=== PATIENT | female | born 2005 ===

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

== ENCOUNTER 2024-04-09 11:42 | Outpatient (REF) | payer OTHER, SELFPAY ==
[2024-04-09 12:19] LABS: MANUAL DIFF FLAG NO
--- OUTSIDE RECORDS SUMMARY | 2024-04-09 12:58 | XMS_ITS | Encounter Summary ---
Author Organization [facility] Address [address] [place], [place] [id number] Care Team Providers Care Invasive Manager Name Role Phone Nadia Phillip Primary Care Provider [phone] Reason for Visit * CFC AUTH/CERT (Routine) - Authorized Specialty Diagnoses / Procedures Referred By Contac t Referred To Contact Rheumatology Diagnoses 6 month follow up Procedures FOLLOW UP Nadia Phillip PA [address] [place] [address] [place] [address] Phone: tel: fax: Ladan Cid MD [address] [place] [address] Phone: tel: fax: Referral ID Status Reason Start Date Expiration Date V isits Requested Visits Authorized [id number] Authorized 04/09/2024 02/17/2025 1 99 Encounter Details Date Type Department Care Team (Late st Contact Info) Description 04/09/2024 10:40 AM EST Office Visit [facility], Department of Rheumatology, [address] [address] Ladan Cid MD [address] [place] [address] Undifferentiated connective tissue disease (Primary Dx) Social History Tobacco Use Types Packs/Day Years Used Date Smoking Tobacco: Never Smokeless Tobacco: Never Comments No Sex and Gender Information Value Date Recorded Sex Assigned at Not on file Legal Sex Female 11:26 AM EST Gender Identity Not on file Sexual Orientation Not on file documented as of this encounter Last Filed Vital Signs Vital Sign Reading Time Taken Comments Blood Pressure 115/81 04/09/2024 10:43 AM EST Pulse 90 04/09/2024 10:43 AM EST Temperature - - Respiratory Rate - - Oxygen Saturation 99% 04/09/2024 10:43 AM EST Inhaled Oxygen Concentration - - Weight 37.2 kg (82 lb 0.2 oz) 04/09/2024 10:43 A M EST Height 150.2 cm (4' 11.13 ) 04/09/2024 10:43 AM EST Body Mass Index 16.49 04/09/2024 10:43 AM EST documented in this encounter Patient Instructions * Patient Instructions* Ladan Cid MD - 04/09/2024 10:40 AM EST 1-Overall you are doing well on current medications. Suggest continuing them. 2-Reviewed teratogenic nature of MTX and need for labs to monitor. Also reviewed importance of eye exams yearly as you are doing. 3-Suggest labs today. Please call if you don't get a call with results. 4-Return in 6 months or sooner if needed. 5-Continue follow up with nephrology as planned. documented in this encounter Plan of Treatment Upcoming Encounters Date Type Department Care Team (Late st Contact Info) Description 10/08/2024 10:40 AM EDT Office Visit [facility], Department of Rheumatology, [address] [address] Laadn Cid MD [address] [place] [phone] Scheduled Orders Name Type Priority Associated Diagnoses Orde r Schedule CBC auto differential Lab Routine Undifferentiated connective tissue disease Ordered: 04/09/2024 Comprehensive metabolic panel Lab Routine Undifferentiated connective tissue disease Ordered: 04/09/2024 Erythrocyte Sediment Rate (ESR) Lab Routine Undifferentiated connective tissue disease Ordered: 04/09/2024 Vitamin D 25 hydroxy Lab Routine Undifferentiated connective tissue disease Ordered: 04/09/2024 documented as of this encounter Visit Diagnoses Diagnosis Undifferentiated connective tissue disease- Primary Unspecified diffuse connective tissue disease documented in this encounter Care Teams Invasive Manager Relationship Specialty Start Date End Date Nadia Phillip PA [address] [place] [address] [place], [place] [address] PCP - General Physician Power Lineman 03/08/21 documented as of this encounter
--- OUTSIDE RECORDS SUMMARY | 2024-04-09 12:58 | XMS_ITS | Clinical Summary ---
Author Organization [facility] Address [address] [place] [address] Care Team Providers Care Speech Writer Name Role Phone Nadia Phillip Primary Care Provider Source Comments Please note that some or all of the patient's information could have additional privacy protections. State laws allow health care providers to render certain types of treatment to minors without parental consent. Please do not assume that this information can be shared solely by obtaining just the consent of the patient's parent/guardian. Please determine if all or part of the patient's care was rendered without parent/guardian involvement. And, if so, obtain the minor's consent prior to disclosure.[facility] Allergies No known active allergies Medications multivitamins WITH MINERALS tablet Take by mouth daily Active lisinopriL (ZESTRIL) 2.5 MG tablet TAKE 1 TABLET BY MOUTH 1 TIME EACH DAY. 01/26/20 22 Active cyproheptadine (PERIACTIN) 4 mg tablet TAKE 1 TABLET (4 MG TOTAL) BY MOUTH 3 (THREE) TIMES A DAY IF NEEDED FOR ALLERGIES 08/24/19 23 Active methotrexate 2.5 MG tabletIndication s:Undifferentiat ed connective tissue disease,Polyarth ritis, inflammatory TAKE 6 TABLETS BY MOUTH EVERY 7 DAYS. 24 tablet 5 12/16/19 24 Active hydroxychloroqui ne sulfate (PLAQUENIL) 200 mg tabletIndication s:Undifferentiat ed connective tissue disease TAKE 1/2 TAB BY MOUTH ONCE DAILY SATURDAY THROUGH SATURDAY, AND TAKE 1 TAB ON SATURDAYS AND SUNDAYS 54 tablet 2 01/15/20 24 Active folic acid (FOLVITE) 1 MG tabletIndication s:Undifferentiat ed connective tissue disease,Polyarth ritis, inflammatory TAKE 1 TABLET BY MOUTH EVERY DAY 90 tablet 3 03/16/19 25 Active folic acid (FOLVITE) 1 MG tabletIndication s:Undifferentiat ed connective tissue disease,Polyarth ritis, inflammatory TAKE 1 TABLET BY MOUTH EVERY DAY 90 tablet 3 03/29/19 24 025 Discontinued Active Problems No known active problems Encounters Date Type Department Care Team Description 04/09/2024 10:40 AM EST Office Visit [facility], Department of Rheumatology, [address] [address] Ladan Cid MD Undifferentiated connective tissue disease (Primary Dx) 03/14/2024 Refill [facility], Department of Rheumatology, [address] [address] Ladan Cid MD Undifferentiated connective tissue disease; Polyarthritis, inflammatory 01/15/2024 Refill [facility], Department of Rheumatology, [address] [address] Ladan Cid MD Undifferentiated connective tissue disease from Last 3 Months Family History Medical History Relation Name Comments Other Maternal Grandmother told sh e had a muscle problem Thyroid disease Maternal Grandmother Dermatomyositis Neg Hx Diabetes type I Neg Hx Juvenile idiopathic arthritis Neg Hx Lupus Neg Hx Psoriasis Neg Hx Rheum arthritis Neg Hx Scleroderma Neg Hx Sjogren's syndrome Neg Hx Spondyloarthropathy Neg Hx Relation Name Status Comments Maternal Grandmother Social History Tobacco Use Types Packs/Day Years Used Date Smoking Tobacco: Never Smokeless Tobacco: Never Tobacco Cessation:Counseling Given: Not Answered Comments No Sex and Gender Information Value Date Recorded Sex Assigned at Not on file Legal Sex Female 11:26 AM EST Gender Identity Not on file Sexual Orientation Not on file Last Filed Vital Signs Vital Sign Reading Time Taken Comments Blood Pressure 115/81 04/09/2024 10:43 AM EST Pulse 90 04/09/2024 10:43 AM EST Temperature 36.2 ??C (97.2 ??F) 12/07/2021 7:02 PM ED T Respiratory Rate 20 12/07/2021 7:02 PM EDT Oxygen Saturation 99% 04/09/2024 10:43 AM EST Inhaled Oxygen Concentration - - Weight 37.2 kg (82 lb 0.2 oz) 04/09/2024 10:43 A M EST Height 150.2 cm (4' 11.13 ) 04/09/2024 10:43 AM EST Body Mass Index 16.49 04/09/2024 10:43 AM EST Plan of Treatment Upcoming Encounters Date Type Department Care Team (Late st Contact Info) Description 10/08/2024 10:40 AM EDT Office Visit [facility], Department of Rheumatology, [place] [address] [place] [address] Ladan Cid MD [address] [place] [phone] Health Maintenance Due Date Last Done Comments DTaP/TDAP/TD VACCINES (1 - Tdap) 07/07/2011 ADOLESCENT HIV SCREENING 2017 COVID-19 Vaccine (2023-2 5 season) 2023 INFLUENZA (#1) 2023 NIRSEVIMAB VACCINES UNDER 8 MONTHS Aged Out No longer eligible based on patient's age to complete this topic Insurance [facility] [employer] Care Teams Speech Writer Relationship Specialty Start Date End Date Nadia Phillip PA [address] [place] [address] [place] [address] PCP - General Physician Managing Broker 03/08/21
--- OUTSIDE RECORDS SUMMARY | 2024-04-09 12:58 | XMS_ITS ---
[facility] Name [facility] History of Medication Use Medication Directions Dispensed Refills Start Date End Date [facility] hydroxychloroquine sulfate (PLAQUENIL) 200 mg tablet TAKE 1/2 TAB BY MOUTH ONCE DAILY SATURDAY THROUGH SATURDAY, AND TAKE 1 TAB ON SATURDAYS AND Sundays08/20/2022 4 active predniSONE (DELTASONE) 10 MG tablet Take 2 tablets (20 mg) by mouth 2 (two) times daily For 1 week, then 20 mg daily for a week, then 15 mg daily for a week, then 10 mg daily. 05/11/2021 2 active multivitamins WITH MINERALS tablet Take by mouth daily active predniSONE (DELTASONE) 10 MG tablet Take 0.5 tablets (5 mg) by mouth daily 04/10/2022 3 active folic acid (FOLVITE) 1 MG tablet TAKE 1 TABLET BY MOUTH EVERY DAY 03/29/2023 active multivitamin tablet Take by mouth daily 2 active cyproheptadine (PERIACTIN) 4 mg tablet TAKE 1 TABLET BY MOUTH THREE TIMES A DAY NEEDED IF FOR ALLERGIES 04/26/2022 3 aborted multivitamins WITH MINERALS tablet Take by mouth daily active amLODIPine (NORVASC) 5 MG tablet Take by mouth 12/14/2021 3 aborted cyproheptadine (PERIACTIN) 4 mg tablet Take 4 mg by mouth 04/26/2022 3 active amLODIPine (NORVASC) 5 MG tablet Take 5 mg by mouth 2 (two) times daily 3 aborted folic acid (FOLVITE) 1 MG tablet Take 1 tablet (1 mg) by mouth daily 01/18/2022 3 active predniSONE (DELTASONE) 10 MG tablet Take 5 mg by mouth daily 11/17/2022 4 aborted cyproheptadine (PERIACTIN) 4 mg tablet TAKE 1 TABLET (4 MG TOTAL) BY MOUTH 3 (THREE) TIMES A DAY IF NEEDED FOR ALLERGIES 08/23/2022 active lisinopriL (ZESTRIL) 2.5 MG tablet TAKE 1 TABLET BY MOUTH 1 TIME EACH DAY. 01/25/2022 active Problems Problem Status Onset Date Problem Type Date of Resolution Source Undifferentiated connective tissue disease active EncounterDiagnosisAct CT_CCM C Polyarthritis, inflammatory active EncounterDiagnosisAct CT_CCM C
--- OUTSIDE RECORDS SUMMARY | 2024-04-09 12:58 | XMS_ITS | Encounter Summary ---
Author Organization [facility] Address [address] [place] [address] Care Team Providers Care Project Surveyor Name Role Phone Nadia Phillip Primary Care Provider Reason for Visit * Reason Comments Medication Refill Encounter Details Date Type Department Care Team (Late st Contact Info) Description 03/14/2024 Refill [facility], Department of Rheumatology, [place] [address] [place] [address] Ladan Cid MD [address] [place] [address] Undifferentiated connective tissue disease; Polyarthritis, inflammatory Social History Tobacco Use Types Packs/Day Years Used Date Smoking Tobacco: Never Smokeless Tobacco: Never Comments No Sex and Gender Information Value Date Recorded Sex Assigned at Not on file Legal Sex Female 11:26 AM EST Gender Identity Not on file Sexual Orientation Not on file documented as of this encounter Last Filed Vital Signs Vital Sign Reading Time Taken Comments Blood Pressure - - Pulse - - Temperature - - Respiratory Rate - - Oxygen Saturation - - Inhaled Oxygen Concentration - - Weight 37.8 kg (83 lb 5.3 oz) 03/16/2024 8:46 AM EST Height - - Body Mass Index 16.62 10/03/2023 10:36 AM EDT documented in this encounter Miscellaneous Notes * Telephone Encounter - Gracy Casillas RN - 03/16/2024 8:47 AM EST Last seen 09/2023, continued on folic acid (FOLVITE) 1 MG tablet, TAKE 1 TABLET BY MOUTH EVERY DAY F/U 03/2024 documented in this encounter Plan of Treatment Upcoming Encounters Date Type Department Care Team (Late st Contact Info) Description 10/08/2024 10:40 AM EDT Office Visit [facility], Department of Rheumatology, [place] [address] [place] [address] Ladan Cid MD [address] [place] [phone] documented as of this encounter Visit Diagnoses Diagnosis Undifferentiated connective tissue disease Unspecified diffuse connective tissue disease Polyarthritis, inflammatory Unspecified inflammatory polyarthropathy documented in this encounter Care Teams Project Surveyor Relationship Specialty Start Date End Date Nadia Phillip PA [address] [place] [address] [place] [address] PCP - General Physician Furniture Delivery Driver 03/08/21 documented as of this encounter
[2024-04-09 12:59] LABS: Basophils Percent Auto 0.6 % (0-2); Eosinophils Absolute Auto 0.1 X10*3/uL (0.0-0.4); Eosinophils Percent Auto 1.9 % (0-4); Hematocrit 35.3 % (37.0-47.0); Hemoglobin 11.2 g/dl (12.0-16.0); Imm Gran Abs Auto 0.03 X10*3/uL (0.00-0.03); Imm Gran Pct Auto 0.6 % (0.0-0.4); Lymphocytes Absolute Auto 0.9 X10*3/uL (1.2-4.9); Lymphocytes Percent Auto 18.9 % (20-40); Mean Corpuscular HGB Conc 31.7 g/dl (31.0-35.0); Mean Corpuscular Hemoglobin 25.4 pg (27.0-33.0); Mean Platelet Volume 11.5 fL (9.4-12.3); Monocytes Absolute Auto 0.1 X10*3/uL (0.1-1.2); Monocytes Percent Auto 2.9 % (2-11); Neutrophils Absolute Auto 3.7 x10*3/uL (2.0-8.3); Neutrophils Percent Auto 75.1 % (45-73); Platelet Count 318 X10*3/uL (160-400); Red Blood Count 4.41 X10*6/uL (4.20-5.50); Red Cell Distribution Width 13.6 % (11.0-16.0); White Blood Count 4.9 X10*3/uL (4.8-10.8)
[2024-04-09 13:30] LABS: Alanine Aminotransferase 23 U/L (0-31); Albumin Level 3.7 g/dL (3.5-5.0); Alkaline Phosphatase 65 U/L (39-117); Anion Gap 12 (12-20); Aspartate Amino Transferase 34 U/L (5-31); Bilirubin Total 0.3 mg/dL (0.0-1.0); Blood Urea Nitrogen 15 mg/dL (9-16); Calcium 8.9 mg/dL (8.4-10.2); Carbon Dioxide 23 mmol/L (22-29); Chloride 107 mmol/L (96-108); Estimated Glomerular Filt Rate > 60; Glucose Random 84 mg/dL (60-115); Potassium 4.1 mmol/L (3.3-5.1); Sodium 138 mmol/L (135-145); Total Protein 7.6 g/dL (6.5-8.0)
[2024-04-09 13:45] LABS: Vitamin D 25-OH Total 39.2 ng/mL (>30)
[2024-04-09 13:55] LABS: Erythrocyte Sedimentation Rate 41 MM/HR (0-20)
== END 2024-04-09 11:43 | disposition home or self-care (01) ==
LOC: HO.LAB 11:42
PROVIDERS: PCP Internal Medicine; Visit Provider Pediatrics Pediatric Rheumatology
DX: M35.9 Systemic involvement of connective tissue, unspecified (principal)
CPT/HCPCS: 36415; 80053; 82306; 85025; 85652

== ENCOUNTER 2024-04-30 10:39 | Outpatient (AMB) | payer OTHER, SELFPAY ==
--- NOTE | 2024-04-30 10:41 | A.OFFPC_ITS ---
Vital Signs 04/30/24 10:42 Height 4 ft 11.5 in Weight 85 lb BMI 16.9 BP 108/62 Blood Pressure Location Lt brachial Position Sitting Pulse 92 Pulse Source Pulse Oximeter Pulse Oximetry (%) 100 Oxygen Delivery Method Room Air Intake Visit Reasons: 6 month f/u Allergies No Known Allergies [No Known Allergies*] Allergy (Verified 04/30/24 10:42) Tobacco use date assessed: 04/30/24 Dental Screening Dental Screen Date: 04/30/24 Did you have a dental visit in the last 12 months?: Yes Did you have a dental problem in the last 6 months where you did not have access to dental care?: No Was dental information given to patient?: Patient has dentist HPI 6 month f/u HPI Details 18-year-old underweight female with an u ndifferentiated connective tissue disease coming in for follow-up. Patient follows up with [facility] for treatment of the connective tissue disease on methotrexate and hydroxychloroquine and doing good. Otherwise no other problems and is here for follow-up [facility] Medical History Renal tubular acidosis Polymyositis Surgical History No pertinent past surgical history Family History (Updated 10/31/23 @ 12:06 by Atul Washington MD) Father Renal failure HTN (hypertension) CVD (cardiovascular disease) Mother No problems noted. Brother No problems noted. Sister No problems noted. Paternal Uncle CVA (cerebral vascular accident) Paternal Grandmother Breast cancer Maternal Grandmother Breast cancer Social History (Updated 10/31/23 @ 12:06 by Atul Washington MD) Housing: House Housing Other:: lives with mother Alcohol intake: never Patient Tobacco Use Status: Never used Tobacco Tobacco use type: Cigarette e-Cigarette/Vaping Use: Never Used Second Hand Smoke Exposure: No service: No Current occupational status: unemployed Current occupational exposures/hazards: No Cognitive needs: No Hearing needs: No Vision needs: Yes Questionnaire PHQ-9 Over the last 2 weeks, how often have you been bothered by any of the following problems? 1. Little interest or pleasure in doing things: not at all 2. Feeling down, depressed, or hopeless: not at all 3. Trouble falling or staying asleep, or sleeping too much: several days 4. Feeling tired or having little energy: not at all 5. Poor appetite or overeating: not at all 6. Feeling bad about yourself - or that you are a failure or have let yourself or your family down: not at all 7. Trouble concentrating on things, such as reading the newspaper or watching television: not at all 8. Moving or speaking so slowly that other people could have noticed. Or the opposite - being so fidgety or restless that you have been moving around a lot more than usual: not at all 9. Thoughts that you would be better off or of hurting yourself in some way: not at all Total score: 1 Depression Screening Interpretation: Negative Depression Screening Done: Yes Source: Developed by Drs. Timothy Smith, Edith Phillip, Charles Machado and colleagues, with an educational holly from [employer]. Thrive Questionnaire Date Thrive assessed: 04/30/24 I am a: Patient What is your living situation today?: I have a steady place to live Within the past 12 months, did the food you bought not last and you didn't have the money to get more?: Never true Within the past 12 months, did you worry whether your food would run out before you got money to buy more?: Never true Do you have trouble paying for medicines?: No Do you have trouble getting transportation to medical appointments?: No Do you have trouble paying your heating and electricity bill?: No Do you have trouble taking care of your child, family member or friend?: No Do you have trouble with day-to-day activities such as bathing, preparing meals, shopping, managing finances, etc.?: No Are you currently unemployed and looking for a job?: Yes Are you interested in more education?: I choose not to answer this question Please select the resources that you would like help with: None Currently or been in a relationship where the following occur: No concerns repor gucci THRIVE Score: 0 AUDIT C Alcohol Use Questionnaire (AUDIT-C) 3. How often do you have six or more drinks on one occasion?: Never Total Score: 0 ROBERTA-7 AMB Questionnaire ROBERTA-7 Date ROBERTA - 7 assessed: 04/30/24 Feeling nervous, anxious, or on edge: 0 = Not at all Not being able to stop or control worryin = Not at all Worrying too much about different things: 0 = Not at all Trouble relaxin = Not at all Being so restless that it is hard to sit still: 0 = Not at all Becoming easily annoyed or irritable: 0 = Not at all Feeling afraid as if something awful might happen: 0 = Not at all Total ROBERTA-7 score (0-4 normal; 5-9 mild; 10-14 moderate; 15-21 severe): 0 Source: Developed by Drs. Timothy Smith, Edith Phillip, Charles Machado and colleagues, with an educational holly from [employer]. Physical exam (Primary Care) Vital Signs: Last Vital Signs Pulse 92 04/30/24 10:42 BP 108/62 04/30/24 10:42 Pulse Ox 100 04/30/24 10:42 Oxygen Delivery Method Room Air 04/30/24 10:42 BMI result Body Mass Index 16.9 Tobacco/Smoking Status: Tobacco use Status Tobacco use date assessed 04/30/24 04/30/24 10:45 Patient Tobacco Use Status Never used Tobacco 04/30/24 10:45 Tobacco use type Cigarette 04/30/24 10:45 e-Cigarette/Vaping Use Never Used 04/30/24 10:45 PHQ-9: PHQ-9 Score PHQ-9: Total score 1 04/30/24 11:31 Depression Screening Interpretation: Negative Thrive Assessment: Date of Thrive Assessment Date Thrive assessed 04/30/24 04/30/24 10:45 Currently or been in a relationship where the following occur: No concerns reported Const General: alert; No acute distress Eyes Conjunctivae: conjunctivae normal Resp Auscultation: clear to auscultation bilaterally Cardio Rate: regular rate Rhythm: regular rhythm GI Inspection: Yes normal to inspection Extrem General: Yes normal to inspection and No edema Coding Level of Care Code Est Pt Level 4 (64399) Diagnoses Undifferentiated connective tissue disease M35.9 Hypertension, unspecified type I10 Hypertension type: unspecified Assessment & Plan Assessment & Plan (1) Undifferentiated connective tissue disease: Comment: Characterized by arthritis. [facility]. Takes methotrexate, Plaquenil, prednisone, lisinopril, cyproheptadine, and a folic acid supplement. Last seen 08/30/22. [facility]. BARRERA goes to [place], Nephrology DR. GREEN, Dr. Lee Code(s): M35.9 - Systemic involvement of connective tissue, unspecified Category: Medical Plan: continues to follow-up with Rheumatology on methotrexate and hydroxychloroquine (2) Hypertension: Code(s): I10 - Essential (primary) hypertension Category: Medical Qualifiers: Hypertension type: unspecified Qualified Code(s): I10 - Essential (primary) hypertension Plan: on lisinopril 2.5 mg once a day
[2024-04-30 10:42] VITALS: BP 108/62; PULSE 92; O2SAT 100; BMI 16.9
--- OUTSIDE RECORDS SUMMARY | 2024-04-30 13:32 | XMS_ITS | Encounter Summary ---
Author Organization [facility] Address [address] [facility] [address] [place] [address] Phone Care Team Providers Care Physician Assistant Surgery Name Role Phone Atul Washington MD Primary Care Provider [phone] Encounter Details Date Type Department Care Team (Late st Contact Info) Description 03/07/2022 Documentation Only [facility] [address] [facility] [address] [place] [phone] Adelina Billingsley Social History Tobacco Use Types Packs/Day Years Used Date Smoking Tobacco: Never Assessed Comments Unknown Sex and Gender Information Value Date Recorded Sex Assigned at Not on file Legal Sex Female 4:36 PM EST Gender Identity Not on file Sexual Orientation Not on file documented as of this encounter Plan of Treatment Upcoming Encounters Date Type Department Care Team (Late st Contact Info) Description 10/27/2024 11:30 AM EDT [facility] [address] [phone] Adelina Almanzar ARNP [address] [phone] documented as of this encounter Visit Diagnoses Not on filedocumented in this encounter Care Teams Physician Assistant Surgery Relationship Specialty Start Date End Date Atul Washington MD [facility] [place] [address] [place] PCP - General Internal Medicine 04/30/23 documented as of this encounter
--- OUTSIDE RECORDS SUMMARY | 2024-04-30 13:32 | XMS_ITS | Clinical Summary ---
Author Organization [facility] Address [address] [facility] [address] [place] [address] Phone Care Team Providers Care Teletypesetter Name Role Phone Atul Washington MD Primary Care Provider [phone] Allergies No known active allergies Medications Multiple Vitamin (Multivitamin) tablet Take by mouth daily Active hydroxychloroqu ine (PLAQUENIL) 200 MG tablet TAKE 1/2 TABLET (100 MG) BY MOUTH DAILY - WITH FULL PILL (200 MG) ON SAT AND Saturday 2 Active folic acid (FOLVITE) 1 MG tablet Take 1,000 mcg by mouth 1 (one) time each day 2 Active methotrexate 2.5 MG tablet 2 Active lisinopril 2.5 MG tabletIndicatio ns:Hypertension Take 1 tablet (2.5 mg total) by mouth 1 (one) time each day 90 tablet 3 4 10/29/19 25 Active cyproheptadine (PERIACTIN) 4 MG tabletIndicatio ns:Hypertension Take 1 tablet (4 mg total) by mouth 3 (three) times a day if needed for allergies 90 tablet 3 4 04/30/19 25 Active Problems Problem Noted Date Diagnosed Date Other secondary hypertension 03/03/2022 Carole-1 antibody detected 12/28/2021 Failure to thrive 11/03/2013 Social History Tobacco Use Types Packs/Day Years Used Date Smoking Tobacco: Never Assessed Tobacco Cessation:Counseling Given: No Comments Unknown Sex and Gender Information Value Date Recorded Sex Assigned at Not on file Legal Sex Female 4:36 PM EST Gender Identity Not on file Sexual Orientation Not on file Last Filed Vital Signs Vital Sign Reading Time Taken Comments Blood Pressure 118/90 10/29/2023 11:16 AM EDT Pulse 94 10/29/2023 11:16 AM EDT Temperature - - Respiratory Rate - - Oxygen Saturation 99% 04/30/2023 10:34 AM EDT Inhaled Oxygen Concentration - - Weight 38.6 kg (85 lb) 10/29/2023 11:16 AM EDT Height 152.4 cm (5') 08/23/2022 10:49 AM EDT Body Mass Index 16.6 08/23/2022 10:49 AM EDT Plan of Treatment Upcoming Encounters Date Type Department Care Team (Late st Contact Info) Description 10/27/2024 11:30 AM EDT [facility] [address] [address] Adelina Almanzar ARNP [address] [address] Health Maintenance Due Date Last Done Comments Pneumococcal Vaccine: Pediat rics (0 to 5 Years) and At-Risk Patients (6 to 64 Years) (1 of 2 - PCV) 2010 Hepatitis B Vaccine (1 of 3 - 19+ 3-dose series) 07/06 Influenza Vaccine (#1) 2023 Insurance [facility] Care Teams Teletypesetter Relationship Specialty Start Date End Date Atul Washington MD [facility] [place] [address] [place], [place] PCP - General Internal Medicine 04/30/23
--- OUTSIDE RECORDS SUMMARY | 2024-04-30 13:32 | XMS_ITS | Encounter Summary ---
Author Organization [facility] Address [address] [facility] [address] [place] [address] Phone Care Team Providers Care Tape Machine Tailer Name Role Phone Atul Washington MD Primary Care Provider [phone] Encounter Details Date Type Department Care Team (Late Contact Info) Description 01/01/2022 Documentation Only [facility] [address] [facility] [address] [place] [address] Adelina Billingsley Social History Tobacco Use Types Packs/Day Years Used Date Smoking Tobacco: Never Assessed Comments Unknown Sex and Gender Information Value Date Recorded Sex Assigned at Not on file Legal Sex Female 4:36 PM EST Gender Identity Not on file Sexual Orientation Not on file COVID-19 Exposure Response Date Recorded In the last 10 days, have yo u been in contact with someone who was confirmed or suspected to have Coronavirus/COVID-19? No / Unsure 12/14/2021 8:55 AM EDT documented as of this encounter Plan of Treatment Upcoming Encounters Date Type Department Care Team (Late st Contact Info) Description 10/27/2024 11:30 AM EDT Office Visit [facility] [address] [facility] [address] [place] [address] Adelina Almanzar ARNP [address] [facility] [address] [place] [address] documented as of this encounter Visit Diagnoses Not on filedocumented in this encounter Care Teams Tape Machine Tailer Relationship Specialty Start Date End Date Atul Washington MD [facility] [address] [place] PCP - General Internal Medicine 04/30/23 documented as of this encounter
== END 2024-04-30 11:41 | disposition home or self-care (01) ==
LOC: HO.HMCH 10:40
PROVIDERS: PCP Internal Medicine; Visit Provider Internal Medicine
DX: M35.9 Systemic involvement of connective tissue, unspecified (principal); I10 Essential (primary) hypertension

== ENCOUNTER → 2024-04-30 10:39 | Outpatient (BNVA) | payer OTHER, SELFPAY | PROVIDERS: PCP Internal Medicine; Visit Provider Internal Medicine | DX: M35.9 Systemic involvement of connective tissue, unspecified (principal); I10 Essential (primary) hypertension | CPT/HCPCS: 99212 ==

== ENCOUNTER 2024-11-03 11:58 | Outpatient (AMB) | payer OTHER, SELFPAY ==
[2024-11-03 12:24] VITALS: BP 106/80; PULSE 103; TEMP 36.4; O2SAT 100; BMI 18.1
--- NOTE | 2024-11-03 12:24 | A.OFFPC_ITS ---
Vital Signs 11/03/24 12:24 Height 4 ft 11.5 in Weight 91 lb 4 oz BMI 18.1 BP 106/80 Blood Pressure Location Lt brachial Position Sitting Pulse 103 H Pulse Source Pulse Oximeter Temp 97.5 F Temp Source Temporal Artery Scan Pulse Oximetry (%) 100 Oxygen Delivery Method Room Air Intake Visit Reasons: ANNUAL Accompanied by: Mother Allergies No Known Allergies (No Known Allergies*) Allergy (Verified 11/03/24 12:27) Medication List - Last Reconciled 11/03/24 by Atul Washington MD cyproheptadine mg PO .QD folic acid 1 mg PO DAILY hydroxychloroquine orally 200 mg weekends and 100 mg weekdays; lisinopril 2.5 mg PO DAILY 90 days methotrexate sodium 15 mg PO QWEEK multivitamin 1 tab PO DAILY Tobacco use date assessed: 11/03/24 Dental Screening Dental Screen Date: 11/03/24 Did you have a dental visit in the last 12 months?: Yes Did you have a dental problem in the last 6 months where you did not have access to dental care?: No Was dental information given to patient?: Patient has dentist HPI ANNUAL HPI Details seeing Dr. Lee 11/2024 [facility] Medical History Renal tubular acidosis Polymyositis Surgical History No pertinent past surgical history Family History (Updated 11/03/24 @ 12:42 by Atul Washington MD) Father Renal failure HTN (hypertension) CVD (cardiovascular disease) Mother No problems noted. Brother No problems noted. Sister No problems noted. Paternal Uncle CVA (cerebral vascular accident) Paternal Grandmother Lymphoma Maternal Grandmother Breast cancer Social History Housing: House Housing Other:: lives with mother Alcohol intake: never Patient Tobacco Use Status: Never used Tobacco Tobacco use type: Cigarette e-Cigarette/Vaping Use: Never Used Second Hand Smoke Exposure: No service: No Current occupational status: unemployed Current occupational exposures/hazards: No Cognitive needs: No Hearing needs: No Vision needs: Yes Questionnaire PHQ-9 Over the last 2 weeks, how often have you been bothered by any of the following problems? 1. Little interest or pleasure in doing things: not at all 2. Feeling down, depressed, or hopeless: not at all 3. Trouble falling or staying asleep, or sleeping too much: several days 4. Feeling tired or having little energy: not at all 5. Poor appetite or overeating: not at all 6. Feeling bad about yourself - or that you are a failure or have let yourself or your family down: not at all 7. Trouble concentrating on things, such as reading the newspaper or watching television: not at all 8. Moving or speaking so slowly that other people could have noticed. Or the opposite - being so fidgety or restless that you have been moving around a lot more than usual: not at all 9. Thoughts that you would be better off or of hurting yourself in some way: not at all Total score: 1 Source: Developed by Drs. Timothy Smith, Edith Phillip, Charles Machado and colleagues, with an educational holly from [employer]. Thrive Questionnaire Date Thrive assessed: 11/03/24 I am a: Patient What is your living situation today?: I have a steady place to live Within the past 12 months, did the food you bought not last and you didn't have the money to get more?: Never true Within the past 12 months, did you worry whether your food would run out before you got money to buy more?: Never true Do you have trouble paying for medicines?: No Do you have trouble getting transportation to medical appointments?: No Do you have trouble paying your heating and electricity bill?: No Do you have trouble taking care of your child, family member or friend?: No Do you have trouble with day-to-day activities such as bathing, preparing meals, shopping, managing finances, etc.?: No Are you currently unemployed and looking for a job?: No Are you interested in more education?: I choose not to answer this question Please select the resources that you would like help with: None Currently or been in a relationship where the following occur: No concerns reported THRIVE Score: 0 AUDIT C Alcohol Use Questionnaire (AUDIT-C) 1. How often do you have a drink containing alcohol?: Never 3. How often do you have six or more drinks on one occasion?: Never Total Score: 0 ROBERTA-7 AMB Questionnaire ROBERTA-7 Date ROBERTA - 7 assessed: 04/30/24 Feeling nervous, anxious, or on edge: 0 = Not at all Not being able to stop or control worryin = Not at all Worrying too much about different things: 0 = Not at all Trouble relaxin = Several days Being so restless that it is hard to sit still: 1 = Several days Becoming easily annoyed or irritable: 0 = Not at all Feeling afraid as if something awful might happen: 0 = Not at all Total ROBERTA-7 score (0-4 normal; 5-9 mild; 10-14 moderate; 15-21 severe): 2 Source: Developed by Drs. Timothy Smith, Edith Phillip, Charles Machado and colleagues, with an educational holly from [employer]. Review of Systems Const Denies poor appetite and Denies weakness Eyes Denies no additional complaints ENT Reports Normal hearing present, Denies dizziness, Denies nasal congestion, Denies tinnitus and Denies sore throat Card Denies chest pain, Denies syncope, Denies rapid heart rate and Denies dyspnea Resp Denies cough and Denies dyspnea GI Denies change in stool character, Reports constipation, Denies diarrhea, Denies nausea and Denies vomiting Denies urinary frequency, Denies difficulty voiding and Denies dysuria Neuro Reports Normal hearing present, Denies confusion, Denies dizziness, Denies syncope and Denies weakness Psych Denies confusion Physical exam (Primary Care) Vital Signs: Last Vital Signs Temp 97.5 F 11/03/24 12:24 Pulse 103 H 11/03/24 12:24 BP 106/80 11/03/24 12:24 Pulse Ox 100 11/03/24 12:24 Oxygen Delivery Method Room Air 11/03/24 12:24 BMI result Body Mass Index 18.1 Tobacco/Smoking Status: Tobacco use Status Tobacco use date assessed 11/03/24 11/03/24 12:28 Patient Tobacco Use Status Never used Tobacco 11/03/24 12:28 Tobacco use type Cigarette 11/03/24 12:28 e-Cigarette/Vaping Use Never Used 11/03/24 12:28 PHQ-9: PHQ-9 Score PHQ-9: Total score 1 11/03/24 12:39 Thrive Assessment: Date of Thrive Assessment Date Thrive assessed 11/03/24 11/03/24 12:28 Currently or been in a relationship where the following occur: No concerns reported Const General: No confusion Orientation/consciousness: No confusion HENDE Head: Yes normocephalic Ears: external ears normal and TM's normal bilaterally Face and sinus: Yes normal facial exam Mouth: moist mucous membranes Throat: Yes tonsils normal Eyes Conjunctivae: conjunctivae normal Pupils: Equal, round and reactive pupils present and Pupil accommodation reflex normal Direct Ophthalmoscopy: normal light reflex Neck Neck: No lymphadenopathy Thyroid: Thyroid normal Chest Chest palpation & inspection: normal inspection of the chest Resp Effort & Inspection: normal respiratory effort and no audible wheezes Auscultation: clear to auscultation bilaterally, no crackles, no wheezes and lung sounds not diminished Cardio Rate: regular rate Rhythm: regular rhythm Peripheral pulses: radial pulses present and dorsalis pedis present GI Palpation (GI): no masses Auscultation: normal bowel sounds and normoactive bowel sounds Rectal Exam - Female: deferred Skin General skin exam: no rashes or lesions noted Rashes: no rashes Neuro General: No confusion Cranial nerves: Yes Equal, round and reactive pupils present and Yes Normal hearing present Cognition (Neuro): normal cognition Gait exam (Neuro): Normal gait present Motor exam (neuro): 5/5 motor strength present throughout Deep tendon reflexes (DTR's): Right brachioradialis reflex intensity grade: 2+, Left brachioradialis reflex intensity grade: 2+, Right patellar reflex intensity grade: 2+ and Left patellar reflex intensity grade: 2+ Extrem General: No edema Coding Level of Care Code Est Pt Prev Care [id number](61103) Diagnoses Annual physical exam Z00.00 Undifferentiated connective tissue disease M35.9 Hypertension, unspecified type I10 Hypertension type: unspecified Assessment & Plan Assessment & Plan (1) Annual physical exam: Code(s): Z00.00 - Encounter for general adult medical examination without abnormal findings Category: Medical Plan: Patient is advised to eat healthy, keep well hydrated, keep active and have adequate sleep. (2) Undifferentiated connective tissue disease: Comment: Characterized by arthritis. Followed by [facility]. Takes methotrexate, Plaquenil, prednisone, lisinopril, cyproheptadine, and a folic acid supplement. Last seen 07/13/23. [facility] Dr. BARRERA goes to [place], Nephrology DR. GREEN, Dr. Lee Code(s): M35.9 - Systemic involvement of connective tissue, unspecified Category: Medical Plan: Patient follows up with pediatric Rheumatology on methotrexate and Plaquenil. Annual ophthalmology exam recommended continue with folic acid every day. Liver function test to be done (3) Hypertension: Code(s): I10 - Essential (primary) hypertension Category: Medical Qualifiers: Hypertension type: unspecified Qualified Code(s): I10 - Essential (primary) hypertension Plan: Continue with blood pressure medication. Decrease salt intake and exercise on lisinopril 2.5 mg once a day Plan History of Present Illness The patient is a 19-year-old female presenting for a physical exam and manageme nt of undifferentiated connective tissue disease and polymyositis. The patient has a history of undifferentiated connective tissue disease and polymyositis, managed with hydroxychloroquine and methotrexate. She follows up with rheumatology and is advised to continue her current medications, including Plaquenil and methotrexate, with regular lab monitoring. The patient also has hypertension, managed with lisinopril 2.5 mg daily. Her blood pressure is reported to be well-controlled. In March 2024, the patient had blood work showing mild anemia with hemoglobin at 11.2 g/dL and hematocrit at 35.3%. Other lab results indicated normal platelet count, white blood cell count, and electrolytes, with a sedimentation rate of 41 mm/hr. The patient denies any new diagnoses or surgeries since her last visit. She reports no allergies to medications and is currently taking hydroxychloroquine, methotrexate, lisinopril, folic acid, periactin, and multivitamins. Family history is significant for lymphoma on the maternal side, breast cancer in the mother, and pancreatic cancer in the grandmother. The patient's sister has asthma. The patient reports sleep disturbances, having trouble falling asleep despite no major changes in her routine. She takes cyproheptadine in the afternoons, which may contribute to sleepiness, and is advised to try taking it at night. Health Maintenance - Annual ophthalmology exam recommended - Liver function test to be done - Advised to hold methotrexate for 2 weeks following flu vaccine Social History - Family history includes lymphoma, breast cancer, and pancreatic cancer - Sister has asthma Review of Systems - General: Denies fever, weight loss, or fatigue - Cardiovascular: Denies chest pain, palpitations, or syncope - Respiratory: Denies dyspnea, cough, or wheezing - Gastrointestinal: Denies nausea, vomiting, diarrhea, or constipation - Neurological: Denies dizziness or headaches - Musculoskeletal: Denies joint pain or swelling - Sleep: Reports difficulty falling asleep Physical Exam General: Cooperative, healthy appearing, comfortable, no acute distress and well developed Orientation: Patient oriented x3 Limitations: No limitations Head: Normal to inspection Ears: Hearing grossly normal bilaterally Nose: Normal external nose present Face and sinus: Normal facial exam Eyes: Appearance normal, both eyes and all related structures Neck: Normal visual inspection and Yes full ROM Respiratory: Normal respiratory effort and able to speak in complete sentences. Clear to auscultation bilaterally Cardiovascular: Regular rate and rhythm. Normal S1 and S2 GI: Normal to inspection. Soft to palpation and nontender Skin: No rashes or lesions noted Neuro: Patient oriented x3 Extremities: Normal to inspection Results - Labs: Mild anemia with hemoglobin 11.2 g/dL, hematocrit 35.3% - Labs: Normal platelet count, white blood cell count, and electrolytes - Labs: Sedimentation rate 41 mm/hr Plan Patient was informed and verbally consented to the use of an ambient scribe for clinic note documentation during this visit. 1. Undifferentiated Connective Tissue Disease The patient is advised to continue hydroxychloroquine and methotrexate as per rheumatology recommendations, with regular lab monitoring to assess disease activity. Follow-up with rheumatology is scheduled to evaluate the need for potential medication adjustments based on lab results. 2. Polymyositis Management includes continuation of current medications, hydroxychloroquine and methotrexate, with regular monitoring of muscle enzyme levels and clinical symptoms. The patient is advised to report any new muscle weakness or symptoms to her healthcare provider. 3. Hypertension The patient's hypertension is managed with lisinopril 2.5 mg daily, with blood pressure reported as well-controlled. Regular monitoring of blood pressure is recommended to ensure continued control. 4. Mild Anemia The patient's mild anemia is noted with hemoglobin at 11.2 g/dL and hematocrit at 35.3%. Further evaluation may be needed if anemia persists or worsens. 5. Preventative Care Annual ophthalmology exams are recommended due to the use of hydroxychloroquine. Liver function tests are advised to monitor potential side effects of methotrexate. The patient is advised to hold methotrexate for 2 weeks following a flu vaccine to prevent potential interactions. Discussion Notes During the visit, we discussed the continuation of hydroxychloroquine and methotrexate for managing undifferentiated connective tissue disease and polymyositis, with regular lab monitoring as advised by rheumatology. We also reviewed the management of hypertension with lisinopril and the importance of regular blood pressure monitoring. Preventative care measures, including annual ophthalmology exams and liver function tests, were emphasized. The patient was advised to hold methotrexate for 2 weeks following a flu vaccine to avoid potential interactions. Patient Instructions - Continue taking hydroxychloroquine and methotrexate as prescribed. - Monitor blood pressure regularly and continue lisinopril. - Schedule and attend annual ophthalmology exams. - Complete liver function tests as advised. - Hold methotrexate for 2 weeks after receiving a flu vaccine. - Try taking cyproheptadine at night to help with sleep disturbances.
--- OUTSIDE RECORDS SUMMARY | 2024-11-03 16:10 | XMS_ITS | Clinical Summary ---
Author Organization [facility] Address [address] [place] [address] Care Team Providers Care General Warehouse Worker Name Role Phone Nadia Phillip Primary Care [...] so, obtain the minor's consent prior to disclosure.[facility] Allerg[facility] No known active allergies Medications multivitamins WITH MINERALS tablet Take by mouth in the morning. Active lisinopriL (ZESTRIL) 2.5 MG tablet 2 Active cyproheptadine (PERIACTIN) 4 mg tablet 3 Active methotrexate 2.5 MG tabletIndications :Undifferentiated connective tissue disease,Polyarthr itis, inflammatory TAKE 6 TABLETS BY MOUTH EVERY 7 DAYS. 24 tablet 5 4 Active hydroxychloroquin e sulfate (PLAQUENIL) 200 mg tabletIndications :Undifferentiated connective tissue disease TAKE 1/2 TAB BY MOUTH ONCE DAILY SATURDAY THROUGH SATURDAY, AND TAKE 1 TAB ON SATURDAYS AND SUNDAYS 54 tablet 2 4 Active folic acid (FOLVITE) 1 MG tabletIndications :Undifferentiated connective tissue disease,Polyarthr itis, inflammatory TAKE 1 TABLET BY MOUTH EVERY DAY 90 tablet 3 5 Active Active Problems No known active problems Encounters Date Type Department Care Team Description 10/08/2024 10:40 AM EDT Office Visit [facility], Department of Rheumatology, [address] [address] Ladan Cid MD Undifferentiated connective tissue disease (Primary Dx) from Last 3 Months Family History Medical History Relation Name Comments Other Maternal Grandmother told candi kulkarni had a muscle problem Thyroid disease Maternal [...] Sign Reading Time Taken Comments Blood Pressure 132/92 10/08/2024 10:35 AM EDT 1st attempt 134/94 Pulse 60 10/08/2024 10:35 AM EDT Temperature 36.2 C (97.2 F) 12/07/2021 7:02 PM EDT Respiratory Rate 20 12/07/2021 7:02 PM EDT Oxygen Saturation 98% 10/08/2024 10: 35 AM EDT Inhaled Oxygen Concentration - - Weight 40.8 kg (89 lb 15.2 oz) 10/08/2024 10:35 AM EDT Height 151.1 cm (4' 11.49 ) 10/08/2024 10:35 AM EDT Body Mass Index 17.87 10/08/2024 10:35 AM EDT Plan of Treatment Upcoming Encounters Date Type Department Care Team (Late st Contact Info) Description 12/24/2024 10:20 AM EST Office Visit [facility], Department of Rheumatology, [address] [address] Ladan Cid MD [address] [place] [address] Health Maintenance Due Date Last Done Comments DTaP/TDAP/TD VACCINES (1 - Tdap) 07/07/2011 ADOLESCENT HIV SCREENING 2017 COVID-19 Vaccine (2023-2 5 season) 2024 INFLUENZA (#1) 2024 NIRSEVIMAB VACCINES UNDER 8 MONTHS Aged Out No longer eligible based on patient's age to complete this topic Procedures Procedure Name Priority Date/Time Associated Diagnosis Comments QUANTIFERON TB KYAW Routine 10/27/2024 Undifferentiated connective tissue disease ALT Routine 10/27/2024 Undifferentiated connective tissue disease AST Routine 10/27/2024 Undifferentiated connective tissue disease BUN CREAT W/ RATIO Routine 10/27/2024 Undifferentiated connective tissue disease ERYTHROCYTE SEDIMENT RATE (ESR) Routine 10/27/2024 Undifferentiated connective tissue disease CBC WITH AUTO DIFFERENTIAL Routine 10/27/2024 Undifferentiated connective tissue disease URINALYSIS WITH MICROSCOPIC Routine 10/27/2024 Undifferentiated connective tissue disease MYOSITIS SPECIFIC 11 AB PANEL Routine 10/27/2024 Undifferentiated connective tissue disease SM (CORDOVA) AND SM/SUB PLANT MANAGER ANTIBODIES Routine 10/27/2024 Undifferentiated connective tissue disease SJOGREN'S (SS-A, SS-B) ANTIBODIES Routine 10/27/2024 Undifferentiated connective tissue disease IMMUNOGLOBULIN G, QUANTITATIVE Routine 10/27/2024 Undifferentiated connective tissue disease DOUBLE STRAND DNA ANTIBODY Routine 10/27/2024 Undifferentiated connective tissue disease ANTI-NUCLEAR ANTIBODY SCREEN, REFLEX TITER Routine 10/27/2024 Undifferentiated connective tissue disease RHEUMATOID FACTOR Routine 10/27/2024 Undifferentiated connective tissue disease from Last 3 Months Results * (ABNORMAL) BUN Creat w/ Ratio (10/27/2024) BUN, External 14 6 - 20 [facility] (NON-INTERFACE D) Creatinine, External 0.58 0.57 - 1 [facility] (NON-INTERFACE D) BUN/Creatinine Ratio, External 24(A) 9 - 23 [facility] (NON-INTERFACE D) Blood BLOOD SPECIMEN / Unknown 10/27/2024 Ladan Cid MD LAB BLOOD ORDERABLES Marjorie l Result Performing Organization Address City/State/[place] Co de Phone Number [facility] (NON-INTERFACED) * Sjogren's (SS-A/Ro, SS-B/La) Antibodies (10/27/2024) 10/27/2024 Impressions [facility] (NON-INTERFACED) - 10/30/2024 2:32 PM EDT Sjogren's Anti-SS-A <0.2 (ref. Range 0-0.9) Sjogren's Anti-SS-B <0.2 (ref. Range 0-0.9) Ladan Cid MD LAB BLOOD ORDERABLES Marjorie l Result Performing Organization Address [facility] de Phone Number [facility] (NON-INTERFACED) * Sm (Cordova) and Sm/SUB PLANT MANAGER Antibodies (10/27/2024) 10/27/2024 Impressions [facility] (NON-INTERFACED) - 10/30/2024 2:30 PM EDT SUB PLANT MANAGER Antibodies - 2.0 H (ref. Range 0-0.9) Cordova Antibodies - 0.8 (ref. Range 0-0.9) Ladan Cid MD LAB BLOOD ORDERABLES Marjorie l Result Performing Organization Address [facility] de Phone Number [facility] (NON-INTERFACED) * Quantiferon TB KYAW, 1 Tube (10/27/2024) Blood BLOOD SPECIMEN / Unknown 10/27/2024 Impressions [facility] (NON-INTERFACED) - 10/30/2024 2:39 PM EDT Quantiferon-TB Gold Plus - negative Ladan Cid MD LAB BLOOD ORDERABLES Marjorie l Result Performing Organization Address [facility] de Phone Number [facility] (NON-INTERFACED) * Erythrocyte Sediment Rate (ESR) (10/27/2024) Pathologist [facility] ESR, External 19 0 - 32 [facility] (NON-INTERFACE D) Blood BLOOD SPECIMEN / Unknown 10/27/2024 Ladan Cid MD LAB BLOOD ORDERABLES Marjorie l Result Performing Organization Address [facility] de Phone Number [facility] (NON-INTERFACED) * IVY SCREEN REFLEX TITER (10/27/2024) Pathologist [facility] IVY Screen, IFA, External positive [facility] (NON-INTERFAC ED) IVY Titer, External 1:640 [facility] (NON-INTERFAC ED) IVY Pattern, External homogeneous [facility] (NON-INTERFAC ED) Blood BLOOD SPECIMEN / Unknown 10/27/2024 Ladan Cid MD LAB BLOOD ORDERABLES Marjorie l Result Performing Organization Address [facility] de Phone Number [facility] (NON-INTERFACED) * (ABNORMAL) CBC auto differential (10/27/2024) White Blood Cell Count, External 3.8 3.4 - 10.8 [facility] (NON-INTERFACE D) Red Blood Cell Count, External 4.71 3.77 - 5.28 [facility] (NON-INTERFACE D) Hemoglobin, External 12.5 11.1 - 15.9 [facility] (NON-INTERFACE D) Hematocrit, External 38.3 34 - 46.6 [facility] (NON-INTERFACE D) MCV, External 81 79 - 97 [facility] (NON-INTERFACE D) MCH, External 26.5(A) 26.6 - 33 [facility] (NON-INTERFACE D) MCHC, External 32.6 31.5 - 35.7 [facility] (NON-INTERFACE D) RDW, External 15.9(A) 11.7 - 15.4 [facility] (NON-INTERFACE D) Platelet Count, External 243 150 - 450 [facility] (NON-INTERFACE D) Blood BLOOD SPECIMEN / Unknown 10/27/2024 Ladan Cid MD LAB BLOOD ORDERABLES Marjorie l Result [facility] (NON-INTERFACED) * (ABNORMAL) Double Strand DNA Antibody (10/27/2024) Anti DsDNA, External 11(A) 0 - 9 [facility] (NON-INTERFACE D) Comment:Negative <5; equivoc al 5-9; positive >9 Blood BLOOD SPECIMEN / Unknown 10/27/2024 Ladan Cid MD LAB BLOOD ORDERABLES Marjorie l Result Performing Organization Address City/[facility]/ZIP Co de Phone Number [facility] (NON-INTERFACED) * Urinalysis with microscopic (10/27/2024) Color, External yellow yellow [facility] (NON-INTERFAC ED) Appearance, External cloudy clear [facility] (NON-INTERFAC ED) Specific Rosman, External 1.015 1.005 - 1.030 [facility] (NON-INTERFAC ED) Ph, External 7 5 - 7.5 [facility] (NON-INTERFAC ED) Glucose, External negative negative [facility] (NON-INTERFAC ED) Bilirubin, External negative negative [facility] (NON-INTERFAC ED) Ketones, External negative negative [facility] (NON-INTERFAC ED) Protein, External negative negative - trace [facility] (NON-INTERFAC ED) Nitrite, External negative negative [facility] (NON-INTERFAC ED) Leukocytes, External negative negative [facility] (NON-INTERFAC ED) RBC/HPF, External none seen 0 - 2 [facility] (NON-INTERFAC ED) WBC/HPF, External 0-5 0 - 5 [facility] (NON-INTERFAC ED) Bacteria, External few none - few [facility] (NON-INTERFAC ED) Urine 10/27/2024 us Ladan Cid MD URINE ORDERABLES Final Re sult [facility] (NON-INTERFACED) * Rheumatoid factor (10/27/2024) Rheumatoid Factor, External <10 <14 [facility] (NON-INTERFACE D) Blood BLOOD SPECIMEN / Unknown 10/27/2024 Ladan Cid MD LAB BLOOD ORDERABLES Marjorie l Result Performing Organization Address [facility] de Phone Number [facility] (NON-INTERFACED) * ALT (10/27/2024) ALT, External 8 0 - 32 [facility] (NON-INTERFACE D) Blood BLOOD SPECIMEN / Unknown 10/27/2024 Ladan Cid MD LAB BLOOD ORDERABLES Marjorie l Result Performing Organization Address [facility]/[place] Co de Phone Number [facility] (NON-INTERFACED) * AST (10/27/2024) AST, External 17 0 - 40 [facility] (NON-INTERFACE D) Blood BLOOD SPECIMEN / Unknown 10/27/2024 Ladan Cid MD LAB BLOOD ORDERABLES Marjorie l Result [facility] (NON-INTERFACED) * Immunoglobulin G, Quantitative (10/27/2024) Blood BLOOD SPECIMEN / Unknown 10/27/2024 Impressions [facility] (NON-INTERFACED) - 10/30/2024 2:36 PM EDT Immunoglobulin G, quantitative - 1528 (ref. Range 586-1602) us Ladan Cid MD LAB BLOOD ORDERABLES Marjorie wei Result [facility] (NON-INTERFACED) from Last 3 Months Insurance [facility] [employer] Care Teams General Warehouse Worker Relationship Specialty Start Date End Date Nadia Phillip PA [address] [place] [address] [place] [address] PCP - General Physician Casual Shoe Inspector 03/08/21
--- OUTSIDE RECORDS SUMMARY | 2024-11-03 16:10 | XMS_ITS ---
Author Name [facility] Organization Unknown History of Medication Use Medication Directions Dispensed Refills Start Date End Date Stat folic acid (FOLVITE) 1 MG tablet TAKE 1 TABLET BY MOUTH EVERY DAY 03/29/2023 active predniSONE (DELTASONE) 10 MG tablet Take 5 mg by mouth daily 11/17/2022 4 aborted cyproheptadine (PERIACTIN) 4 mg tablet TAKE 1 TABLET (4 MG TOTAL) BY MOUTH 3 (THREE) TIMES A DAY IF NEEDED FOR ALLERGIES 08/23/2022 active hydroxychloroquine sulfate (PLAQUENIL) 200 mg tablet TAKE 1/2 TAB BY MOUTH ONCE DAILY SATURDAY THROUGH SATURDAY, AND TAKE 1 TAB ON SATURDAYS AND Sundays08/20/2022 4 active cyproheptadine (PERIACTIN) 4 mg tablet Take 4 mg by mouth 04/26/2022 3 active cyproheptadine (PERIACTIN) 4 mg tablet TAKE 1 TABLET BY MOUTH THREE TIMES A DAY NEEDED IF FOR ALLERGIES 04/26/2022 3 aborted predniSONE (DELTASONE) 10 MG tablet Take 0.5 tablets (5 mg) by mouth daily 04/10/2022 3 active lisinopriL (ZESTRIL) 2.5 MG tablet TAKE 1 TABLET BY MOUTH 1 TIME EACH DAY. 01/25/2022 active folic acid (FOLVITE) 1 MG tablet Take 1 tablet (1 mg) by mouth daily 01/18/2022 3 active amLODIPine (NORVASC) 5 MG tablet Take by mouth 12/14/2021 3 aborted predniSONE (DELTASONE) 10 MG tablet Take 2 tablets (20 mg) by mouth 2 (two) times daily For 1 week, then 20 mg daily for a week, then 15 mg daily for a week, then 10 mg daily. 05/11/2021 2 active amLODIPine (NORVASC) 5 MG tablet Take 5 mg by mouth 2 (two) times daily 3 aborted multivitamin tablet Take by mouth daily 2 active multivitamins WITH MINERALS tablet Take by mouth daily active multivitamins WITH MINERALS tablet Take by mouth daily active Problems Problem Status Onset Date Problem Type Date of Resolution Source Inflammatory polyarthropathy active EncounterDiagnosisAct [facility] Undifferentiated connective tissue disease active EncounterDiagnosisAct [facility] Encounters Encounter Type Encounter Reason Primary Diagnosis Location Date Ambulatory Systemic involvement of connective tissue, unspecified Systemic involvement of connective tissue, unspecified [place] 10/08/2024 Ambulatory Systemic involvement of connective tissue, unspecified Systemic involvement of connective tissue, unspecified ([facility] 04/09/2024 Ambulatory Systemic involvement of connective tissue, unspecified Systemic involvement of connective tissue, unspecified ([facility] 10/03/2023 Ambulatory Systemic involvement of connective tissue, unspecified Systemic involvement of connective tissue, unspecified ([facility] 04/25/2023 Ambulatory Systemic involvement of connective tissue, unspecified Systemic involvement of connective tissue, unspecified ([facility] 12/06/2022 Ambulatory Systemic involve ment of connective tissue, unspecified ([facility] 08/30/2022 Ambulatory [facility] 05/24/2022 Ambulatory [facility] 04/10/2022 Ambulatory [facility] 03/28/2022 Ambulatory [facility] 03/01/2022 Ambulatory [facility] 02/22/2022 Ambulatory [facility] 12/24/2021 Ambulatory [facility] 12/19/2021 Ambulatory [facility] 12/14/2021 Ambulatory [facility] 12/12/2021 Ambulatory [facility] 06/13/2021 Ambulatory [facility] 06/09/2021 Ambulatory [facility] 05/26/2021 Care Team Organization Name Specialty Phone Email Start Date End Da te ([facility] NADIA WALDRON Primary Care 12/06/2022 Nadia Waldron Primary Care 12/06/2022 Nadia Waldron Primary Care 05/24/2022 Nadia Waldron Primary Care 12/27/2021
--- OUTSIDE RECORDS SUMMARY | 2024-11-03 16:10 | XMS_ITS | Clinical Summary ---
Author Organization [facility] Address [address] [place] [phone] Phone Care Team Providers Care Acid Tender Name Role Phone Atul Washington MD Primary Care Provider [phone] Allergies No known active allergies Medications Multiple [...] Active methotrexate 2.5 MG tablet 2 Active cyproheptadine (PERIACTIN) 4 MG tabletIndicatio ns:Hypertension TAKE 1 TABLET BY MOUTH THREE TIMES A DAY IF NEEDED FOR ALLERGIES 90 tablet 3 5 Active lisinopril 2.5 MG tabletIndicatio ns:Hypertension Take 1 tablet (2.5 mg total) by mouth 1 (one) time each day 90 tablet 3 5 10/28/19 26 Active lisinopril 2.5 MG tabletIndicatio ns:Hypertension Take 1 tablet (2.5 mg total) by mouth 1 (one) time each day 90 tablet 3 4 10/28/19 25 Discontinu ed(Reorder (does not appear on AVS)) Active Problems Problem Noted Date Diagnosed Date Anemia, not otherwise specified 10/29/2024 Hypertension 03/03/2022 Carole-1 antibody detected 12/28/2021 Failure to thrive 11/03/2013 Encounters Date Type Department Care Team Description 10/28/2024 Orders Only [facility] [address] [address] Provider, MD Denice 10/27/2024 11:30 AM EDT Office Visit [facility] [address] [phone] Adelina Almanzar ARNP Hypertension (Primary Dx) 10/27/2024 Office Communication [facility] [address] [address] Adelina Almanzar ARNP from Last 3 Months Family History Medical History Relation Comments Heart disease Father Hypertension Father Kidney disease Father Relation Status Comments Father Social History Tobacco Use Types Packs/Day Years Used Date Smoking Tobacco: Never Tobacco Cessation:Counseling Given: Not Answered Alcohol Use Standard Drinks/Week Comments Never 0 (1 standard drink = 0.6 oz pur e alcohol) Comments Unknown Sex and Gender Information Value Date Recorded Sex Assigned at Not on file Legal Sex Female 4:36 PM EST Gender Identity Not on file Sexual Orientation Not on file Last Filed Vital Signs Vital Sign Reading Time Taken Comments Blood Pressure 110/70 10/27/2024 11:26 AM EDT Pulse 80 10/27/2024 11:15 AM EDT Temperature - - Respiratory Rate - - Oxygen Saturation 99% 10/27/2024 11:15 AM EDT Inhaled Oxygen Concentration - - Weight 41.9 kg (92 lb 6.4 oz) 10/27/2024 11:15 A M EDT Height 152.4 cm (5') 08/23/2022 10:49 AM EDT Body Mass Index 18.05 08/23/2022 10:49 AM EDT Plan of Treatment Upcoming Encounters Date Type Department Care Team (Late st Contact Info) Description 10/26/2025 10:00 AM EDT [facility] [address] [phone] Adelina Almanzar ARNP [facility] [address] [address] Health Maintenance Due Date Last Done Comments Hepatitis B Vaccine (1 of 3 - 19+ 3-dose series) 07/06 Pneumococcal Vaccine: Peds ( 0 to 5 Years) and At-Risk Patients (6 to 49 Years) (1 of 2 - PCV) 07/07/2023 Influenza Vaccine (#1) 2024 Procedures Procedure Name Priority Date/Time Associated Diagnosis Comments RENAL FUNCTION PANEL (EXTERNAL LAB ENTRY) Routine 10/27/2024 2:04 PM EDT from Last 3 Months Results * Renal Function Panel (External Lab) (10/27/2024 2:04 PM EDT) BUN 14 mg/dL eGFR 133 Creatinine 0.58 mg/dL Blood [facility] Provider LAB BLOOD ORDERABLES Edit ed Result - Final from Last [address] [place] [address] [facility] Care Teams Acid Tender Relationship Specialty Start Date End Date Atul Washington MD [facility] [address] [place], [place] PCP - General Internal Medicine 04/30/23
--- OUTSIDE RECORDS SUMMARY | 2024-11-03 16:10 | XMS_ITS | Encounter Summary ---
Author Organization [facility] Address [address] [address] Phone Care Team Providers Care Back Tender Cloth Printing Name Role Phone Atul Washington MD Primary Care Provider [phone] Encounter Details Date Type Department Care Team (Late st Contact Info) Description 10/27/2024 Office Communication [facility] [address] [phone] Adelina Almanzar ARNP [address] [phone] Social History Tobacco Use Types Packs/Day Years Used Date Smoking Tobacco: Never Alcohol Use Standard Drinks/Week Comments Never 0 (1 standard drink = 0.6 oz pur e alcohol) Comments Unknown Sex and Gender Information Value Date Recorded Sex Assigned at Not on file Legal Sex Female 4:36 PM EST Gender Identity Not on file Sexual Orientation Not on file documented as of this encounter Miscellaneous Notes * Telephone Encounter - Yas Brandon - 10/28/2024 1:57 PM EDT Lab work update on pt chart * Telephone Encounter - Yas Brandon - 10/28/2024 11:58 AM EDT Called to pt rheumatology dr and spoke to Olga and she states pt did not did any lab work yet.shehang up on me. documented in this encounter Plan of Treatment Upcoming Encounters Date Type Department Care Team (Late st Contact Info) Description 10/26/2025 10:00 AM EDT Office Visit [facility] [address] [facility] [address] [place] [address] Adelina Almanzar ARNP [address] [facility] [address] [place] [address] documented as of this encounter Visit Diagnoses Not on filedocumented in this encounter Care Teams Back Tender Cloth Printing Relationship Specialty Start Date End Date Atul Washington MD [facility] [place] [address] [place], [place] PCP - General Internal Medicine 04/30/23 documented as of this encounter
--- OUTSIDE RECORDS SUMMARY | 2024-11-03 16:10 | XMS_ITS | Encounter Summary ---
Author Organization [facility] Address [address] [phone] Phone Care Team Providers Care Casket Assembler Metal Name Role Phone Atul Washington MD Primary Care Provider [phone] Encounter Details Date Type Department Care Team (Late Contact Info) Description 10/28/2024 Orders Only [facility] [address] [phone] ProviderDenice MD Social History Tobacco Use Types Packs/Day Years [...] Encounters Date Type Department Care Team (Late Contact Info) Description 10/26/2025 10:00 AM EDT Office Visit [facility] [address] [phone] Adelina Almanzar ARNP [address] [address] documented as of this encounter Procedures Procedure Name Priority Date/Time Associated Diagnosis Comments RENAL FUNCTION PANEL (EXTERNAL LAB ENTRY) Routine 10/27/2024 2:04 PM EDT documented in this encounter Results * Renal Function Panel (External Lab) (10/27/2024 2:04 PM EDT) BUN 14 mg/dL eGFR 133 Creatinine 0.58 mg/dL Blood Historical Provider LAB BLOOD ORDERABLES Edit ed Result - Final documented in this encounter Visit Diagnoses Not on filedocumented in this encounter Care Teams Casket Assembler Metal Relationship Specialty Start Date End Date Atul Washington MD [facility] [place] [address] [place] PCP - General Internal Medicine 04/30/23 documented as of this encounter
--- OUTSIDE RECORDS SUMMARY | 2024-11-03 16:10 | XMS_ITS | Encounter Summary ---
Author Organization [facility] Address [address] [facility] [address] [place] [phone] Phone Care Team Providers Care Change Director Name Role Phone Atul Washington MD Primary Care Provider [phone] Encounter Details Date Type Department Care Team (Late st Contact Info) Description 03/07/2022 Documentation Only [facility] [address] [facility] [address] [place] [phone] Adelina Billingsley Social History Tobacco Use [...] Office Visit [facility] [address] [phone] Adelina Almanzar ARNP [address] [phone] documented as of this encounter Visit Diagnoses Not on filedocumented in this encounter Care Teams Change Director Relationship Specialty Start Date End Date Atul Washington MD [facility] [place] [address] [place] PCP - General Internal Medicine 04/30/23 documented as of this encounter
--- OUTSIDE RECORDS SUMMARY | 2024-11-03 16:10 | XMS_ITS | Encounter Summary ---
Author Organization [facility] [place] Address [address] [facility] [address] [place] [address] Phone Care Team Providers Care Senior Control Systems Engineer Name Role Phone tAul Washington MD Primary Care Provider [phone] Encounter Details Date Type Department Care Team (Late Contact Info) Description 01/01/2022 Documentation Only [facility] [address] [facility] [address] [place] [address] Adelina Billingsley Social History Tobacco Use [...] Visit [facility] [address] [facility] [address] [place] [address] Adelina Almanzar ARNP [address] [facility] [address] [place] [address] documented as of this encounter Visit Diagnoses Not on filedocumented in this encounter Care Teams Senior Control Systems Engineer Relationship Specialty Start Date End Date Atul Washington MD [facility] [address] [place] PCP - General Internal Medicine 04/30/23 documented as of this encounter
== END 2024-11-03 12:59 | disposition home or self-care (01) ==
LOC: HO.HMCH 11:59
PROVIDERS: PCP Internal Medicine; Visit Provider Internal Medicine
DX: Z00.00 Encounter for general adult medical examination without abnormal findings (principal); M35.9 Systemic involvement of connective tissue, unspecified; I10 Essential (primary) hypertension

== ENCOUNTER → 2024-11-03 11:58 | Outpatient (BNVA) | payer OTHER, SELFPAY | PROVIDERS: PCP Internal Medicine; Visit Provider Internal Medicine | DX: Z00.00 Encounter for general adult medical examination without abnormal findings (principal); M35.9 Systemic involvement of connective tissue, unspecified; I10 Essential (primary) hypertension; M33.20 Polymyositis, organ involvement unspecified; D64.9 Anemia, unspecified; Z79.899 Other long term (current) drug therapy | CPT/HCPCS: 99395 ==